=== PATIENT | male | born 1955 | race Caucasian/White ===

== ENCOUNTER 2017-07-11 09:56 | Emergency (ER) | payer OTHER ==
[2017-07-11 10:10] VITALS: TEMP 97.6; O2SAT 97
[2017-07-11] MEDS ORDERED: LUBIPROSTONE 24 MCG CAP PO ONE (10:31)
--- NOTE | 2017-07-11 10:33 | ED.PDOC ---
History of Present Illness - General Chief Complaint: GI Problem Stated Complaint: left groin and llq pain Time Seen by Provider: 07/11/17 10:03 Source: patient Exam Limitations: no limitations - History of Present Illness Initial Comments: the patient is a 62-year-old male presenting to the emergency room with about a week's worth of left lower quadrant mild to moderate discomfort. He does have a history of significant constipation which has been a little worse recently. He does have long-term constipation. No fevers. No vomiting. No blood in the stool. No pus in the stool. No history of diverticulitis. He has never had a colonoscopy though he is past due. [facility]. Exam here today shows that he is significantly obese. I feel no palpable hernia. He is not having any obstruction symptoms. No bruising along the abdominal wall. There is no rebound or peritoneal signs. Most discomfort is in the left lower quadrant to deep palpation. No urinary symptoms. No significant weight changes. Timing/Duration: 1 week Severity: moderate Improving Factors: nothing Worsening Factors: nothing Associated Symptoms: denies symptoms Allergies/Adverse Reactions: Allergies NO KNOWN ALLERGY Allergy (Verified 04/28/15 04:58) Home Medications: Ambulatory Orders Omeprazole [Prilosec] 40 mg PO DAILY PRN 04/28/15 Ciprofloxacin [Cipro] 500 mg PO BID #14 tab 07/11/17 Metronidazole 500 mg PO TID #20 tab 07/11/17 Review of Systems - Review of Systems Constitutional: States: no symptoms reported EENTM: States: no symptoms reported Respiratory: States: no symptoms reported Cardiology: States: no symptoms reported Gastrointestinal/Abdominal: States: abdominal pain, constipation. Denies: diarrhea, nausea, vomiting Genitourinary: States: no symptoms reported Musculoskeletal: States: no symptoms reported Skin: States: no symptoms reported Neurological: States: no symptoms reported Endocrine: States: no symptoms reported All other Systems: No Change from Baseline Past Medical History (General) - Patient Medical History Hx Seizures: No Hx Stroke: No Hx Dementia: No Hx Asthma: No Hx of COPD: No Hx Cardiac Disorders: No Hx Congestive Heart Failure: No Hx Pacemaker: No Hx Hypertension: Yes Hx Thyroid Disease: No Hx Diabetes: No Hx Gastroesophageal Reflux: No Hx Renal Disease: No Hx Cancer: No Hx of HIV: No Hx Hepatitis C: No Hx MRSA: No Surgical History: no surgical history - Vaccination History Hx Tetanus, Diphtheria Vaccination: No Hx Influenza Vaccination: No Hx Pneumococcal Vaccination: Yes - Social History Hx Tobacco Use: Yes Hx Chewing Tobacco Use: No Hx Alcohol Use: Yes Hx Substance Use: No Hx Substance Use Treatment: No Hx Depression: Yes Hx Physical Abuse: No Hx Emotional Abuse: No Hx Suspected Abuse: No - Female History Patient : No Family Medical History - Family History Mother Family History: Unknown Physical Exam - Physical Exam General Appearance: Alert, Comfortable, No apparent distress Eye Exam: bilateral normal Ears, Nose, Throat: hearing grossly normal, normal ENT inspection, normal pharynx Neck: full range of motion, supple, normal inspection Respiratory: lungs clear, normal breath sounds, no respiratory distress, no accessory muscle use Cardiovascular/Chest: normal peripheral pulses, regular rate, rhythm, no edema Peripheral Pulses: radial,right: 2+, radial,left: 2+, dorsalis pedis,right: 2+, dorsalis pedis,left: 2+ Gastrointestinal/Abdominal: soft, other - see history of present illness Rectal Exam: deferred Back Exam: normal inspection, no CVA tenderness, no vertebral tenderness Extremity: normal range of motion, non-tender, normal inspection, no pedal edema , normal capillary refill 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 The patient is given a dose of amitiza here today. He does need to drink more than a gallon of water daily. Additionally he needs to increase his fiber intake either through his diet or through taking a fiber supplement daily such as Metamucil or FiberCon. 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 If the patient's symptoms are failing to improve after getting his bowels cleaned out then he can start taking metronidazole and ciprofloxacin for empiric treatment of possible low-grade diverticulitis. He does need to avoid alcohol with these antibiotics. [facility] does [facility] He does need to be set up through them for a colonoscopy as he is past due. Needs to return to the emergency room for any significant worsening. The patient does agree to this plan of care. additional lab work and imaging did not appear to be warranted at this time. Obviously if the clinical picture changes, that can change as well. Departure - Departure Clinical Impression: Constipation Qualifiers: Constipation type: unspecified constipation type Qualified Code(s): K59.00 - Constipation, unspecified Disposition: Discharge to Home or Self Care Condition: Fair Departure Forms: ED Discharge - Pt. Copy, Patient Portal Self Enrollment Instructions: DI for Constipation Diet: regular diet - High-fiber low-fat Activity: increase activity as tolerated Prescriptions: Ciprofloxacin [Cipro] 500 mg PO BID #14 tab Metronidazole 500 mg PO TID #20 tab Home Medications: Ambulatory Orders Omeprazole [Prilosec] 40 mg PO DAILY PRN 04/28/15 Ciprofloxacin [Cipro] 500 mg PO BID #14 tab 07/11/17 Metronidazole 500 mg PO TID #20 tab 07/11/17 Additional Instructions: the patient's 62-year-old male presenting with left lower quadrant abdominal pain and known constipation. The patient is given a dose of amitiza here today. He does need to drink more than a gallon of water daily. Additionally he needs to increase his fiber intake either through his diet or through taking a fiber supplement daily such as Metamucil or FiberCon. 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 If the patient's symptoms are failing to improve after getting his bowels cleaned out then he can start taking metronidazole and ciprofloxacin for empiric treatment of possible low-grade diverticulitis. He does need to avoid alcohol with these antibiotics. He does need to [facility] He does need to be set up through them for a colonoscopy as he is past due. Needs to return to the emergency room for any significant worsening. The patient does agree to this plan of care.
[2017-07-11 10:54] VITALS: BP 187/103
== END 2017-07-11 10:55 | disposition home or self-care (01) ==
LOC: ER 09:56
DX: K59.00 Constipation, unspecified (principal); I10 Essential (primary) hypertension